=== PATIENT | female | born 1990 | race Caucasian/White ===

== ENCOUNTER 2017-12-26 16:07 | Inpatient (IN) | payer OTHER ==
[2017-12-26] MEDS: SODIUM CHLORIDE 0.9% FLUSH 10 ML SOL IV SCH (16:45)
[2017-12-26] MEDS: HYDRALAZINE HYDROCHLORIDE 20 MG/ML SOL IV PRN ×2 (16:45→17:55)
[2017-12-26] MEDS ORDERED: HYDRALAZINE HYDROCHLORIDE 20 MG/ML SOL IV PRN (17:50)
[2017-12-26] MEDS ORDERED: HYDRALAZINE HYDROCHLORIDE 20 MG/ML SOL ONE (17:53)
[2017-12-26] MEDS: SODIUM CHLORIDE 0.9% FLUSH 10 ML SOL IV PRN (17:55)
[2017-12-26] MEDS ORDERED: LACTATED RINGERS 1,000 ML IV PRN (18:33)
[2017-12-26] MEDS ORDERED: FENTANYL 100MCG/2ML SOL IV PRN (18:33)
[2017-12-26] MEDS ORDERED: CARBOPROST 250 MCG/ML SOL IM PRN (18:33)
[2017-12-26] MEDS ORDERED: MEPIVACAINE HCL 1% MPF 30 ML/VIAL SOL INFIL PRN (18:33)
[2017-12-26] MEDS ORDERED: METHYLERGONOVINE MALEATE 0.2 MG/ML SOL IM PRN (18:33)
[2017-12-26] MEDS ORDERED: OXYTOCIN 10000 MU/ML SOL IM PRN (18:33)
[2017-12-26 19:54] LABS: BASOPHILS % (AUTO) 1 % (0-3); EOSINOPHILS % (AUTO) 1 % (0-9); HEMATOCRIT 41 % (35-47); HEMOGLOBIN 14.1 gm/dl (12.0-15.5); LYMPHOCYTES % (AUTO) 32.7 % (10-50); MEAN CORPUSCULAR HEMOGLOBIN 31.3 pg (27.0-32.0); MEAN CORPUSCULAR HGB CONC 34.7 gm/dl (32.0-36.0); MEAN CORPUSCULAR VOLUME 90 fL (81-99); NEUTROPHILS % (AUTO) 60.1 % (37-80)
[2017-12-26 19:58] LABS: APPEARANCE,URINE Clear; BILIRUBIN,URINE NEGATIVE (NEGATIVE); COLOR,URINE Light yellow; GLUCOSE, URINE (UA) NEGATIVE (NEGATIVE); KETONES,URINE NEGATIVE (NEGATIVE); LEUKOCYTE ESTERASE ,URINE NEGATIVE (NEGATIVE); NITRATE,URINE NEGATIVE (NEGATIVE); OCCULT BLOOD,URINE 1+ (NEG-TRACE); UROBILINOGEN,URINE 0.2 (0.2-1.0 EU)
[2017-12-26 20:04] LABS: ALBUMIN 2.4 gm/dl (3.4-5.0); BILIRUBIN,TOTAL 0.1 mg/dl (0.2-1.0); CALCIUM 8.4 mg/dl (8.5-10.1); CARBON DIOXIDE 22.2 mEq/L (21-32); CREATININE 0.78 mg/dl (0.60-1.00); POTASSIUM 3.6 mMol/L (3.5-5.1); TOTAL PROTEIN 6.7 gm/dl (6.4-8.2)
[2017-12-26 20:50] LABS: BACTERIA TRACE (< 1+); CRYSTALS NEGATIVE (0-3 AVE/HPF); EPITHELIAL CELLS 0-5 (SQUAMOUS); RBC,URINE 0-1 (0-3AV/HPF); WBC,URINE 0-1 (0-5AV/HPF)
[2017-12-27] MEDS ORDERED: LABETALOL HYDROCHLORIDE 5 MG/ML SOL IV PRN (00:24)
[2017-12-27] MEDS ORDERED: LABETALOL HYDROCHLORIDE 5 MG/ML SOL IV ONE ×3 (00:36→07:46)
[2017-12-27] MEDS: SODIUM CHLORIDE 0.9% FLUSH 10 ML SOL IV SCH ×2 (00:38→08:37)
[2017-12-27] MEDS ORDERED: TERBUTALINE SULFATE 1 MG/ML SOL SC PRN (04:09)
[2017-12-27] MEDS ORDERED: OXYTOCIN 10000 MU/ML 20,000 MU in LACTATED RINGERS 1,000 ML IV SCH (04:15)
[2017-12-27] MEDS ORDERED: LACTATED RINGERS 1,000 ML IV SCH ×2 (04:15→12:30)
[2017-12-27] MEDS ORDERED: OXYTOCIN 10000 MU/ML SOL ONE (04:25)
[2017-12-27] MEDS ORDERED: LACTATED RINGERS 1,000 ML ONE (04:26)
[2017-12-27] MEDS: SODIUM CHLORIDE 0.9% FLUSH 10 ML SOL IV PRN ×4 (04:39→12:16)
[2017-12-27] MEDS ORDERED: HYDRALAZINE HYDROCHLORIDE 20 MG/ML SOL IV ONE (06:20)
[2017-12-27 08:33] LABS: ABO O; ANTIBODY SCREEN Negative; RH TYPE Positive
[2017-12-27 10:43] LABS: UNIT TYPE O POSITIVE
[2017-12-27 10:45] LABS: UNIT TYPE O POSITIVE
[2017-12-27] MEDS ORDERED: HYDRALAZINE HYDROCHLORIDE 20 MG/ML SOL IV PRN (11:55)
[2017-12-27] MEDS ORDERED: HYDRALAZINE HYDROCHLORIDE 20 MG/ML SOL ONE (12:09)
[2017-12-27] MEDS ORDERED: DIPHENHYDRAMINE 50 MG/ML SOL IV PRN (12:20)
[2017-12-27] MEDS ORDERED: NALBUPHINE HCL 20 MG/ML SOL IV PRN (12:20)
[2017-12-27] MEDS ORDERED: NALOXONE HYDROCHLORIDE 0.4 MG/ML SOL IV PRN (12:20)
[2017-12-27] MEDS ORDERED: EPHEDRINE SULFATE 50 MG/ML SOL IV PRN (12:20)
[2017-12-27] MEDS ORDERED: IBUPROFEN 600 MG TAB PO PRN (14:06)
[2017-12-27] MEDS ORDERED: APAP/HYDROCODONE 325/5 TAB PO PRN (14:06)
[2017-12-27] MEDS ORDERED: WITCH HAZEL 1 EA PAD TOP PRN (14:06)
[2017-12-27] MEDS ORDERED: TEMAZEPAM 15MG 15 MG CAP PO PRN (14:06)
[2017-12-27] MEDS ORDERED: FLEET ENEMA PR PRN (14:06)
[2017-12-27] MEDS ORDERED: BISACODYL 10 MG SUP PR PRN (14:06)
[2017-12-27] MEDS ORDERED: BENZOCAINE/MENTHOL 1 SPR TOP PRN (14:06)
[2017-12-27] MEDS: LACTATED RINGERS 1,000 ML IV SCH (14:24)
[2017-12-27] MEDS: DOCUSATE SODIUM 100 MG SGL PO SCH (22:11)
[2017-12-28] MEDS: DOCUSATE SODIUM 100 MG SGL PO SCH ×2 (09:22→21:00)
[2017-12-28 18:18] LABS: BASOPHILS % (AUTO) 1 % (0-3); EOSINOPHILS % (AUTO) 0 % (0-9); HEMATOCRIT 36 % (35-47); HEMOGLOBIN 12.7 gm/dl (12.0-15.5); MEAN CORPUSCULAR HEMOGLOBIN 31.4 pg (27.0-32.0); MEAN CORPUSCULAR HGB CONC 35.1 gm/dl (32.0-36.0); MEAN CORPUSCULAR VOLUME 89 fL (81-99); MONOCYTES % (AUTO) 6.6 % (0-12); NEUTROPHILS % (AUTO) 71.1 % (37-80)
[2017-12-28 18:19] LABS: APPEARANCE,URINE Clear; BILIRUBIN,URINE NEGATIVE (NEGATIVE); COLOR,URINE Yellow; GLUCOSE, URINE (UA) NEGATIVE (NEGATIVE); KETONES,URINE NEGATIVE (NEGATIVE); LEUKOCYTE ESTERASE ,URINE NEGATIVE (NEGATIVE); NITRATE,URINE NEGATIVE (NEGATIVE); OCCULT BLOOD,URINE TRACE LYSED (NEG-TRACE); PH,URINE 5.5; UROBILINOGEN,URINE 0.2 (0.2-1.0 EU)
[2017-12-28 18:29] LABS: RBC,URINE NEGATIVE (0-3AV/HPF); WBC,URINE NEGATIVE (0-5AV/HPF)
[2017-12-28 18:30] LABS: BACTERIA 2+ (< 1+); CRYSTALS NEGATIVE (0-3 AVE/HPF); EPITHELIAL CELLS NEGATIVE (SQUAMOUS)
[2017-12-28 18:57] LABS: ALBUMIN 2.3 gm/dl (3.4-5.0); BILIRUBIN,TOTAL 0.2 mg/dl (0.2-1.0); CARBON DIOXIDE 26.9 mEq/L (21-32); CREATININE 0.85 mg/dl (0.60-1.00); POTASSIUM 3.4 mMol/L (3.5-5.1); TOTAL PROTEIN 5.9 gm/dl (6.4-8.2)
[2017-12-28] MEDS ORDERED: AMOXIL/CLAVULANATE 400/5 ML PDR ONE (20:53)
[2017-12-28] MEDS: AMOXIL/CLAVULANATE 400/5 ML PDR PO SCH (20:59)
[2017-12-29 05:56] VITALS: RESP 16; TEMP 98; O2SAT 95
[2017-12-29 06:58] VITALS: PULSE 74
[2017-12-29 08:00] LABS: BASOPHILS % (AUTO) 1 % (0-3); EOSINOPHILS % (AUTO) 1 % (0-9); HEMATOCRIT 36 % (35-47); HEMOGLOBIN 12.6 gm/dl (12.0-15.5); LYMPHOCYTES % (AUTO) 27.8 % (10-50); MEAN CORPUSCULAR HEMOGLOBIN 31.5 pg (27.0-32.0); MEAN CORPUSCULAR VOLUME 90 fL (81-99); NEUTROPHILS % (AUTO) 61.9 % (37-80)
[2017-12-29 08:14] LABS: ALBUMIN 2.2 gm/dl (3.4-5.0); BILIRUBIN,TOTAL 0.3 mg/dl (0.2-1.0); CARBON DIOXIDE 25.5 mEq/L (21-32); CREATININE 0.68 mg/dl (0.60-1.00); POTASSIUM 3.2 mMol/L (3.5-5.1); TOTAL PROTEIN 6.2 gm/dl (6.4-8.2)
[2017-12-29] MEDS ORDERED: POTASSIUM CHLORIDE 10 MEQ TER ONE (08:51)
[2017-12-29] MEDS ORDERED: HYDRALAZINE HYDROCHLORIDE 10 MG TAB ONE (08:51)
[2017-12-29] MEDS: AMOXIL/CLAVULANATE 400/5 ML PDR PO SCH (08:56)
[2017-12-29] MEDS: DOCUSATE SODIUM 100 MG SGL PO SCH (08:57)
[2017-12-29] MEDS ORDERED: POTASSIUM CHLORIDE 10 MEQ TER PO SCH (09:00)
[2017-12-29] MEDS ORDERED: HYDRALAZINE HYDROCHLORIDE 10 MG TAB PO SCH (09:00)
[2017-12-29 10:32] VITALS: BP 124/89
== END 2017-12-29 11:50 | disposition home or self-care (01) | DRG 774 ==
LOC: OBOP 16:07 → OB 17:00 → UNDOADMIN 17:00
PROVIDERS: ADMIT Family Medicine; ATTEND Family Medicine
PROC: 0U7C7ZZ Dilation of Cervix, Via Natural or Artificial Opening (ICD-10-PCS; 2017-12-26)
PROC: 10E0XZZ Delivery of Products of Conception, External Approach (ICD-10-PCS; principal; 2017-12-27)
PROC: 0KQM0ZZ Repair Perineum Muscle, Open Approach (ICD-10-PCS; 2017-12-27)
DX: O80 Encounter for full-term uncomplicated delivery (principal); O86.4 Pyrexia of unknown origin following delivery; O13.4 Gestational [pregnancy-induced] hypertension without significant proteinuria, complicating childbirth; Z37.0 Single live birth; Z3A.37 37 weeks gestation of pregnancy; O76 Abnormality in fetal heart rate and rhythm complicating labor and delivery
CPT/HCPCS: 36415; 59025; 80053; 81001; 85018; 85025; 86850; 86900; 86901; 86920; 87088; J0360; J0670; J2590; J3105; A9270-GY; J3490